=== PATIENT | male | born 1960 | race Caucasian/White ===

== ENCOUNTER 2021-09-30 16:57 | Observation (INO) | payer MEDICARE, BC ==
[2021-09-30] MEDS ORDERED: Sodium Chloride 0.9% 10 ML Syringe FLUSH PRN (17:54)
[2021-09-30] MEDS ORDERED: Morphine 10 MG/ML Syringe IM ONE (18:04)
[2021-09-30] MEDS ORDERED: Sodium Chloride 0.9% 1,000 ML IV SCH (18:15)
[2021-09-30] MEDS ORDERED: fentaNYL 100 MCG/2 ML SDV IVPUSH ONE (18:18)
[2021-09-30] MEDS: Ondansetron 4 MG/2 ML SDV IVPUSH ONE (18:21)
[2021-09-30] MEDS ORDERED: Ondansetron 4 MG/2 ML SDV ONE (18:21)
[2021-09-30] MEDS ORDERED: fentaNYL 100 MCG/2 ML SDV ONE (18:27)
[2021-09-30] MEDS ORDERED: HYDROmorphone 2 MG/ML SDV IVPUSH ONE (18:46)
[2021-09-30] MEDS ORDERED: HYDROmorphone 2 MG/ML SDV ONE (18:52)
--- NOTE | 2021-09-30 19:09 | EDM.PDOC ---
ED HPI GENERAL MEDICAL PROBLEM - General Chief Complaint: Trauma Stated Complaint: fall Time Seen by Provider: 09/30/21 16:57 Source of Information: Reports: Patient, EMS History Limitations: Reports: No Limitations - History of Present Illness INITIAL COMMENTS - FREE TEXT/NARRATIVE: 61-year-old male presents to the ED complaining of head pain neck pain back pain left shoulder pain left thigh pain secondary to falling from a ladder approximately 14 feet. Patient fell onto a concrete surface was then struck by lumbar that was falling. Patient denies any loss of consciousness patient laid on the concrete floor for approximately 30 minutes patient then crawled to a phone to call 911. Onset: Today Onset Date: 09/30/21 Onset Time: 16:00 Duration: Hour(s): Location: Reports: Head, Neck, Back, Upper Extremity, Left, Lower Extremity, Left Quality: Reports: Sharp Severity: Severe Improves with: Reports: None Worsens with: Reports: Other (Palpation), Movement Context: Reports: Trauma Associated Symptoms: Reports: Headaches. Denies: Confusion, Chest Pain, Cough, Diaphoresis, Fever/Chills, Loss of Appetite, Malaise, Nausea/Vomiting, Seizure, Shortness of Breath, Syncope, Weakness - Related Data Home Meds: Home Meds Gabapentin [Neurontin] 400 mg PO 09/30/21 [History] Gabapentin [Neurontin] 800 mg PO BEDTIME 09/30/21 [History] Modafinil [Provigil] 200 mg PO 09/30/21 [History] traMADol [Ultram] 100 mg PO TID 09/30/21 [History] Review of Systems - Review of Systems Review Of Systems: See Below Constitutional: Reports: No Symptoms Eyes: Reports: No Symptoms Ears: Reports: No Symptoms Nose: Reports: No Symptoms Mouth/Throat: Reports: No Symptoms Respiratory: Reports: No Symptoms Cardiovascular: Reports: No Symptoms GI/Abdominal: Reports: No Symptoms Genitourinary: Reports: No Symptoms Musculoskeletal: Reports: Other (Patient has hardware from surgery in the cervical area and in the lumbar area. Patient also has had 2 left shoulder rotary cuff repairs with decreased range of motion residual.) Skin: Reports: Other (Dirty hands, dirty face secondary to outdoor labor) Neurological: Reports: Headache. Denies: Trouble Speaking Psychiatric: Reports: No Symptoms ED EXAM, GENERAL - Physical Exam Exam: See Below Free Text/Narrative:: 61-year-old male presents the ED via EMS for trauma secondary to fall from approximately 14 feet. Patient is in moderate to severe distress secondary to pain. Patient is alert and oriented 3/3 GCS 4 5 6. Speaking in full sentences. No obvious trauma noted. Exam Limited By: No Limitations General Appearance: Alert, WD/WN, Severe Distress Eye Exam: Bilateral Eye: EOMI, PERRL Ears: Normal External Exam, Hearing Grossly Normal, Other (No domingo sign) Nose: Normal Inspection, No Blood. No: Nasal Tenderness, Nasal Deformity, Nasal Swelling, Nasal Drainage, Clear Rhinorrhea, Nasal Flaring Throat/Mouth: Normal Inspection, Normal Oropharynx, Normal Voice, No Airway Compromise (Yes) Head: Normocephalic, Other (No deformity noted minor tenderness to the left mosque without deformity.). No: Facial Swelling, Facial Tenderness Neck: Supple, Non-Tender, Limited Range of Motion, Other (No tenderness on palpation scar from cervical surgery anterior neck, trachea is midline no subcutaneous air noted on palpation of the neck) Respiratory/Chest: No Respiratory Distress, Lungs Clear, Normal Breath Sounds, No Accessory Muscle Use, Other (Pain upon palpation on depression of the sternum and on the left side of the ribs when hooping the chest, no deformity noted, no crepitus no paradoxical movement). No: Crackles, Rales, Rhonchi, Wheezing, Accessory Muscle Use, Retractions Cardiovascular: Normal Peripheral Pulses, Regular Rate, Rhythm, No Edema, No Gallop, No JVD, No Murmur, No Rub Peripheral Pulses: 2+: Radial (L), Radial (R), Femoral (L), Femoral (R) GI/Abdominal: Soft, Non-Tender, No Distention, No Mass Back Exam: Paraspinal Tenderness Extremities: Leg Pain (Left leg pain upon palpation the anterior medial surface of the thigh, no deformity noted no crepitus. 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 ) Neurological: Alert, Oriented, Normal Cognition Psychiatric: Normal Affect, Normal Mood Skin Exam: Warm, Dry, Intact, Normal Color, No Rash, Other (Nonhygienic) Course - Orders/Labs/Meds Orders: Active Orders 24 hr Category Date Time Status Cervical Spine wo Cont [CT] Stat Exams 09/30/21 17:47 Taken Chest Abdomen Pelvis wo Cont [CT] Stat Exams 09/30/21 17:47 Taken Femur Min 1V Lt [CR] Stat Exams 09/30/21 17:54 Taken Head wo Cont [CT] Stat Exams 09/30/21 17:47 Taken Sodium Chloride 0.9% [Normal Saline] 1,000 ml Med 09/30/21 18:15 Active IV ASDIRECTED Sodium Chloride 0.9% [Saline Flush] Med 09/30/21 17:54 Active 10 ml FLUSH ASDIRECTED PRN Peripheral IV Insertion Adult [OM.PC] Routine Oth 09/30/21 17:54 Ordered Medication Orders Sodium Chloride (Normal Saline) 1,000 mls @ 100 mls/hr IV ASDIRECTED QING Sodium Chloride (Sodium Chloride 0.9% 10 Ml Syringe) 10 ml FLUSH ASDIRECTED PRN PRN Reason: Keep Vein Open Labs: Laboratory Tests 09/30/21 09/30/21 09/30/21 Range/Units 17:53 17:53 17:53 WBC 6.8 (4.0-11.0) K/uL RBC 4.18 L (4.50-6.50) M/uL Hgb 13.7 (13.0-18.0) g/dL Hct 39.0 L (40.0-54.0) % MCV 93 (76-96) fL MCH 32.8 H (27.0-32.0) pg MCHC 35.1 H (31.0-35.0) g/dL RDW 13.0 (11.0-16.0) % Plt Count 168 (150-400) K/uL MPV 9.4 (6.0-10.0) fL Neut % (Auto) 70.0 (45.0-70.0) % Lymph % (Auto) 23.7 (20.0-40.0) % [place] % (Auto) 5.3 (3.0-10.0) % Eos % (Auto) 0.4 L (1.0-5.0) % Baso % (Auto) 0.6 H (0.0-0.5) % Neut # (Auto) 4.78 (2.00-7.50) K/uL Lymph # (Auto) 1.62 (1.50-4.00) K/uL [place] # (Auto) 0.36 (0.20-0.80) K/uL Eos # (Auto) 0.03 L (0.04-0.40) K/uL Baso # (Auto) 0.04 (0.02-0.10) K/uL Sodium 137 (136-145) mmol/L Potassium 3.6 (3.5-5.1) mmol/L Chloride 103 (98-107) mmol/L Carbon Dioxide 26.8 (21.0-32.0) mmol/L Anion Gap 10.8 (5.0-15.0) mmol/L BUN 21 (8-26) mg/dL Creatinine 1.28 (0.70-1.30) mg/dL Est Cr Clr Drug Dosing TNP Estimated GFR (MDRD) 57 L (>60) MLS/MIN BUN/Creatinine Ratio 16.4 (6-25) Glucose 94 (74-100) mg/dL Calcium 8.6 (8.5-10.1) mg/dL Troponin I < 0.017 (0.000-0.060) ng/mL Meds: Medications Generic Name Dose Route Start Last Admin Trade Name Freq PRN Reason Stop Dose Admin Sodium Chloride 1,000 mls @ 100 mls/hr 09/30/21 18:15 Normal Saline IV ASDIRECTED QING Sodium Chloride 10 ml 09/30/21 17:54 Sodium Chloride 0.9% 10 Ml Syringe FLUSH ASDIRECTED PRN Keep Vein Open Discontinued Medications Generic Name Dose Route Start Last Admin Trade Name Freq PRN Reason Stop Dose Admin Fentanyl Confirm 09/30/21 18:27 Fentanyl 100 Mcg/2 Ml Sdv Administered 09/30/21 18:28 Dose 100 mcg .ROUTE .STK-MED ONE Hydromorphone HCl Confirm 09/30/21 18:52 Hydromorphone 2 Mg/Ml Sdv Administered 09/30/21 18:53 Dose 2 mg .ROUTE .STK-MED ONE Morphine Sulfate 4 mg 09/30/21 18:04 Morphine 10 Mg/Ml Syringe IM 09/30/21 18:05 ONETIME ONE Ondansetron HCl Confirm 09/30/21 18:21 Ondansetron 4 Mg/2 Ml Sdv Administered 09/30/21 18:22 Dose 4 mg .ROUTE .STK-MED ONE Departure - Departure Time of Disposition: 19:15 Disposition: Refer to Observation Condition: Good Clinical Impression: Traumatic injury of back Head trauma Qualifiers: Encounter type: initial encounter Qualified Code(s): S09.90XA - Unspecified injury of head, initial encounter Strain of neck muscle Qualifiers: Encounter type: initial encounter Qualified Code(s): S16.1XXA - Strain of muscle, fascia and tendon at neck level, initial encounter - Discharge Information *PRESCRIPTION DRUG MONITORING PROGRAM REVIEWED*: No *COPY OF PRESCRIPTION DRUG MONITORING REPORT IN PATIENT HEMALATHA: No Referrals: PCP,None [Primary Care Provider] - - My Orders Last 24 Hours: My Active Orders 09/30/21 17:54 Femur Min 1V Lt [CR] Stat Sodium Chloride 0.9% [Saline Flush] 10 ml FLUSH ASDIRECTED PRN Peripheral IV Insertion Adult [OM.PC] Routine 09/30/21 18:15 Sodium Chloride 0.9% [Normal Saline] 1,000 ml IV ASDIRECTED - Assessment/Plan Last 24 Hours: My Active Orders 09/30/21 17:54 Femur Min 1V Lt [CR] Stat Sodium Chloride 0.9% [Saline Flush] 10 ml FLUSH ASDIRECTED PRN Peripheral IV Insertion Adult [OM.PC] Routine 09/30/21 18:15 Sodium Chloride 0.9% [Normal Saline] 1,000 ml IV ASDIRECTED Assessment:: 61-year-old male presented to the ED after a fall from approximately 14 feet off of a ladder onto a concrete surface with a secondary strike to the head without by a 2 by a piece of lumber. Patient was delivered to the ED via EMS, and a full body back splint. Patient was assessed for airway, breathing, circulation which were all intact. Patient was assessed for head trauma, neck trauma, back trauma, chest trauma abdominal trauma and pelvic trauma. Patient was found to be in stable condition was sent for imaging CAT scan. All CAT scans came back reading negative for traumatic injuries. Patient was still in a considerable amount of pain, patient received morphine, fentanyl, Dilaudid. Patient was assessed for possible left shoulder injury possibly rotary cuff, due to the nature of the injury classified as a step 3 patient will be admitted for observation and pain control and neuro checks every 4 hours. Plan is to observe patient from for 12 to 24 hours for any signs of neurologic decompensation or deficits, and control patient's pain. During transition from ED to observation patient developed muscle spasms throughout his body requesting assistance with that patient was given Norflex 60 mg IV for spasms. Plan: ABC, rapid trauma assessment, history, exam, labs, imaging, IV, morphine, fentanyl, Dilaudid, patient moved to observation from the ED, Norflex for spasms, neurochecks every 4 hours throughout the night
[2021-09-30] MEDS: Ketorolac 60 MG/2 ML SDV IVPUSH SCH (21:05)
[2021-10-01] MEDS ORDERED: HYDROmorphone 2 MG/ML SDV ONE (01:52)
[2021-10-01] MEDS: HYDROmorphone 2 MG/ML SDV IVPUSH PRN ×2 (01:55→06:12)
[2021-10-01] MEDS: Ketorolac 60 MG/2 ML SDV IVPUSH SCH ×2 (04:00→07:57)
--- NOTE | 2021-10-01 09:02 | CR ---
DATE OF SERVICE: 09/30/21 CLINICAL DATA: trauma LEFT FEMUR: AP views were performed. No evidence of fracture or dislocation. AP and lateral views are, however, necessary to exclude traumatic injury. [id number] [facility]
--- NOTE | 2021-10-01 09:05 | CT ---
DATE OF SERVICE: 09/30/21 CLINICAL DATA: FALL UNENHANCED BRAIN CT: Multislice acquisition through the brain without IV contrast was performed. No priors. No masses or mass effect. No intracranial hemorrhage. No evidence of acute or subacute infarct. No fractures. IMPRESSION: No acute intracranial abnormalities. [id number] [facility]
--- NOTE | 2021-10-01 09:10 | CT ---
DATE OF SERVICE: 09/30/21 CLINICAL DATA: FALL CERVICAL SPINE CT: Multislice axial acquisition was performed. Axial images and sagittal and coronal reformations are reviewed. The patient is status post C3-4, C4-5, and C5-6 discectomy and fusion. There is internal fixation of C3, C4, C5, and C6 with anterior metal plates and multiple screws. There is degenerative disc disease at the C2-3 level, C6-7 level, and C7-T1 level. There is facet joint hypertrophy throughout the cervical spine. There are degenerative changes involving the atlantoaxial articulation. No acute fracture or dislocation. No lytic or blastic bone lesions. The soft tissues are unremarkable. The visualized lung apices are clear. IMPRESSION: No acute abnormalities. [id number] [facility]
--- NOTE | 2021-10-01 09:17 | CT ---
DATE OF SERVICE: 09/30/21 CLINICAL DATA: FALL UNENHANCED CHEST CT: Multislice acquisition through the chest without IV contrast was performed. No priors. There are atelectatic changes in the dependent portion of both lungs. The lungs are otherwise clear. No areas of consolidation. No pneumothorax. No pleural effusions. The heart size is normal. No pericardial effusion. No aortic aneurysm. No hilar or mediastinal adenopathy. No displaced fractures. IMPRESSION: No acute abnormalities. UNENHANCED ABDOMEN AND PELVIC CT: Multislice acquisition through the abdomen and pelvis without IV or oral contrast was performed. No priors. There is diffuse fatty infiltration of the liver. No focal hepatic lesions. The patient is status post cholecystectomy. The spleen appears normal. The pancreas is mildly atrophic, otherwise normal. The right and left adrenals appear normal. The right and left kidneys appear normal. No nephrocalcinosis or nephrolithiasis. No hydronephrosis or hydroureter. The bladder is fluid-filled. It appears normal. The prostate is mildly enlarged. The appendix is not dilated. There is a moderate amount of stool present in the ascending and transverse colon. No free air. No free fluid. No dilated loops of bowel. No adenopathy. No aortic aneurysm. There is degenerative disc disease throughout the lower thoracic and lumbar spine. The patient is status post L4-5 discectomy and there is internal fixation of L4 and L5 with posterior metal rods and pedicle screws. No acute fractures. IMPRESSION: No acute abnormalities. [id number] [facility]
--- NOTE | 2021-10-01 09:31 | PCM.DCSUM1 ---
Discharge Summary - Hospital Course Free Text/Narrative:: This patient presents to the emergency room following a fall at home. He was admitted to observation status overnight. During that time he has done well although does continue to have pain. He is also having some muscle spasms. He is up walking in his room, has a good appetite this morning, and is requesting discharge. HPI Initial Comments: Refer to emergency department documentation Diagnosis: Stroke: No - Discharge Data Discharge Date: 10/01/21 Discharge Disposition: Home, Self-Care 01 Condition: Good - Referral to Home Health Primary Care Physician: PCP None - Discharge Plan *PRESCRIPTION DRUG MONITORING PROGRAM REVIEWED*: No *COPY OF PRESCRIPTION DRUG MONITORING REPORT IN PATIENT HEMALATHA: No Home Medications: Home Meds Gabapentin [Neurontin] 400 mg PO 09/30/21 [History] Gabapentin [Neurontin] 800 mg PO BEDTIME 09/30/21 [History] Modafinil [Provigil] 200 mg PO 09/30/21 [History] traMADol [Ultram] 100 mg PO TID 09/30/21 [History] Forms: ED Department Discharge Referrals: PCP,None [Primary Care Provider] - - Discharge Summary/Plan Comment DC Time >30 min.: No Total # of Minutes for Discharge Time: 25 - General Info Date of Service: 10/01/21 Admission Dx/Problem (Free Text: Fall Functional Status: Reports: Pain Controlled, Tolerating Diet, Ambulating - Review of Systems General: Reports: No Symptoms HEENT: Reports: No Symptoms Pulmonary: Reports: No Symptoms Cardiovascular: Reports: No Symptoms Gastrointestinal: Reports: No Symptoms Genitourinary: Reports: No Symptoms Musculoskeletal: Reports: Shoulder Pain, Back Pain, Other (Muscle spasms) Skin: Reports: No Symptoms Neurological: Reports: No Symptoms - Patient Data Vitals - Most Recent: Last Vital Signs Temp 36.1 C 09/30/21 21:00 Pulse 59 L 10/01/21 06:00 Resp 16 10/01/21 06:00 BP 132/87 10/01/21 06:00 Pulse Ox 98 10/01/21 06:00 I&O - Last 24 hours: Intake & Output 09/30/21 10/01/21 10/01/21 22:59 06:59 14:59 Intake Total 1000 Output Total 650 Balance 350 Lab Results - Last 24 hrs: Laboratory Results - last 24 hr 09/30/21 09/30/21 09/30/21 Range/Units 17:53 17:53 17:53 WBC 6.8 (4.0-11.0) K/uL RBC 4.18 L (4.50-6.50) M/uL Hgb 13.7 (13.0-18.0) g/dL Hct 39.0 L (40.0-54.0) % MCV 93 (76-96) fL MCH 32.8 H (27.0-32.0) pg MCHC 35.1 H (31.0-35.0) g/dL RDW 13.0 (11.0-16.0) % Plt Count 168 (150-400) K/uL MPV 9.4 (6.0-10.0) fL Neut % (Auto) 70.0 (45.0-70.0) % Lymph % (Auto) 23.7 (20.0-40.0) % [place] % (Auto) 5.3 (3.0-10.0) % Eos % (Auto) 0.4 L (1.0-5.0) % Baso % (Auto) 0.6 H (0.0-0.5) % Neut # (Auto) 4.78 (2.00-7.50) K/uL Lymph # (Auto) 1.62 (1.50-4.00) K/uL [place] # (Auto) 0.36 (0.20-0.80) K/uL Eos # (Auto) 0.03 L (0.04-0.40) K/uL Baso # (Auto) 0.04 (0.02-0.10) K/uL Sodium 137 (136-145) mmol/L Potassium 3.6 (3.5-5.1) mmol/L Chloride 103 (98-107) mmol/L Carbon Dioxide 26.8 (21.0-32.0) mmol/L Anion Gap 10.8 (5.0-15.0) mmol/L BUN 21 (8-26) mg/dL Creatinine 1.28 (0.70-1.30) mg/dL Est Cr Clr Drug Dosing TNP Estimated GFR (MDRD) 57 L (>60) MLS/MIN BUN/Creatinine Ratio 16.4 (6-25) Glucose 94 (74-100) mg/dL Calcium 8.6 (8.5-10.1) mg/dL Troponin I < 0.017 (0.000-0.060) ng/mL Med Orders - Current: Current Medications Hydromorphone HCl (Hydromorphone 2 Mg/Ml Sdv) 1 mg IVPUSH Q6H PRN PRN Reason: Pain Last Admin: 10/01/21 06:12 Dose: 1 mg Documented by: Ketorolac Tromethamine (Ketorolac 60 Mg/2 Ml Sdv) 30 mg IVPUSH Q6H [facility] Stop: 10/05/21 20:08 Last Admin: 10/01/21 07:57 Dose: 30 mg Documented by: Sodium Chloride (Sodium Chloride 0.9% 10 Ml Syringe) 10 ml FLUSH ASDIRECTED PRN PRN Reason: Keep Vein Open Discontinued Medications Fentanyl (Fentanyl 100 Mcg/2 Ml Sdv) Confirm Administered Dose 100 mcg .ROUTE .STK-MED ONE Stop: 09/30/21 18:28 Last Admin: 09/30/21 20:07 Dose: Not Given Documented by: Fentanyl (Fentanyl 100 Mcg/2 Ml Sdv) 50 mcg IVPUSH ONETIME ONE Stop: 09/30/21 18:19 Last Admin: 09/30/21 18:27 Dose: 50 mcg Documented by: Hydromorphone HCl (Hydromorphone 2 Mg/Ml Sdv) Confirm Administered Dose 2 mg .ROUTE .STK-MED ONE Stop: 09/30/21 18:53 Last Admin: 09/30/21 20:07 Dose: Not Given Documented by: Hydromorphone HCl (Hydromorphone 2 Mg/Ml Sdv) 1 mg IVPUSH ONETIME ONE Stop: 09/30/21 18:47 Last Admin: 09/30/21 18:45 Dose: 1 mg Documented by: Hydromorphone HCl (Hydromorphone 2 Mg/Ml Sdv) Confirm Administered Dose 2 mg .ROUTE .STK-MED ONE Stop: 10/01/21 01:53 Last Admin: 10/01/21 05:12 Dose: Not Given Documented by: Sodium Chloride (Normal Saline) 1,000 mls @ 100 mls/hr IV ASDIRECTED QING Stop: 09/30/21 19:00 Morphine Sulfate (Morphine 10 Mg/Ml Syringe) 4 mg IM ONETIME ONE Stop: 09/30/21 18:05 Last Admin: 09/30/21 18:00 Dose: 4 mg Documented by: Ondansetron HCl (Ondansetron 4 Mg/2 Ml Sdv) Confirm Administered Dose 4 mg .ROUTE .STK-MED ONE Stop: 09/30/21 18:22 Last Admin: 09/30/21 20:08 Dose: Not Given Documented by: Ondansetron HCl (Ondansetron 4 Mg/2 Ml Sdv) 4 mg IVPUSH ONETIME ONE Stop: 09/30/21 18:11 Last Admin: 09/30/21 18:21 Dose: 4 mg Documented by: - Exam General: Reports: Alert, Oriented, Cooperative, No Acute Distress HEENT: Reports: Pupils Equal, Pupils Reactive, EOMI, Mucous Membr. Moist/[place]ck: Reports: Supple Lungs: Reports: Clear to Auscultation, Normal Respiratory Effort Cardiovascular: Reports: Regular Rate, Regular Rhythm Back Exam: Reports: Normal Inspection, Decreased Range of Motion (Related to pain), Muscle Spasm Extremities: Normal Range of Motion (With the exception of left shoulder. He will need to follow-up with this.), Normal Capillary Refill Skin: Reports: Warm, Intact Neurological: Reports: No New Focal Deficit
== END 2021-10-01 09:30 | disposition home or self-care (01) ==
LOC: LB.ED 16:57 → LB.MS 19:00 → UNDOADMOB 19:39 → LB.MS 19:39
PROVIDERS: ADMIT Physician Assistant; ATTEND Physician Assistant
DX: S16.1XXA Strain of muscle, fascia and tendon at neck level, initial encounter (principal); S09.90XA Unspecified injury of head, initial encounter; M62.838 Other muscle spasm; M54.2 Cervicalgia; Z79.899 Other long term (current) drug therapy; W11.XXXA Fall on and from ladder, initial encounter
CPT/HCPCS: 36415; 70450; 71250; 72125; 73551; 74176; 80048; 84484; 85025; 96372; 96374; 96375; 96376; 99217; 99285; A0425; A0429; G0378; J1170; J1885; J2270; J2405; J3010

== ENCOUNTER 2022-10-09 11:37 | Emergency (ER) | payer MEDICARE, BC ==
[2022-10-09] MEDS ORDERED: Sodium Chloride 0.9% 10 ML Syringe FLUSH PRN (11:49)
[2022-10-09] MEDS ORDERED: Morphine 2 MG/ML SYRINGE IVPUSH ONE ×2 (11:53→12:52)
[2022-10-09 12:34] LABS: ESTIMATED GFR 53 mL/min (>60)
[2022-10-09] MEDS ORDERED: HYDROmorphone 2 MG/ML SDV IVPUSH ONE (14:03)
[2022-10-09] MEDS ORDERED: HYDROmorphone 2 MG/ML Syringe IVPUSH ONE (14:06)
[2022-10-09] MEDS ORDERED: HYDROmorphone 2 MG/ML Syringe ONE (14:16)
[2022-10-09 20:10] VITALS: BP 125/77; PULSE 87
== END 2022-10-09 14:40 ==
LOC: LB.ED 11:37
DX: S63.065A Dislocation of metacarpal (bone), proximal end of left hand, initial encounter (principal); S01.21XA Laceration without foreign body of nose, initial encounter; I10 Essential (primary) hypertension; Z86.16 Personal history of COVID-19; W14.XXXA Fall from tree, initial encounter
CPT/HCPCS: 36415; 70450; 71045; 72125; 73110; 80053; 85025; 96374; 96375; 96376; 99285; J1170; J2270